=== PATIENT | female | born 1970 | race Caucasian/White ===

== ENCOUNTER → 2024-10-06 18:32 | Outpatient (REF) | payer OTHER, SELFPAY | LOC: PAVMRI 18:32 | PROVIDERS: ATTENDING PHYSICIAN Orthopaedic Surgery Hand Surgery; FAMILY PHYSICIAN Physician Assistant Medical | DX: M25.511 Pain in right shoulder (principal) | CPT/HCPCS: 73221 ==

== ENCOUNTER → 2024-10-17 14:48 | Outpatient (REF) | payer OTHER, SELFPAY | LOC: EMG 14:48 | PROVIDERS: ATTENDING PHYSICIAN Orthopaedic Surgery Hand Surgery; FAMILY PHYSICIAN Physician Assistant Medical | DX: R20.0 Anesthesia of skin (principal); M25.511 Pain in right shoulder | CPT/HCPCS: 95886; 95909 ==

== ENCOUNTER 2025-01-12 15:21 | Outpatient (RCR) | payer OTHER, SELFPAY | END 2025-01-12 23:59 | disposition home or self-care (01) | LOC: RPT 15:21 | PROVIDERS: ATTENDING PHYSICIAN Physician Assistant Surgical; FAMILY PHYSICIAN Physician Assistant Medical | DX: Z47.89 Encounter for other orthopedic aftercare (principal); M25.511 Pain in right shoulder; M62.81 Muscle weakness (generalized); M25.611 Stiffness of right shoulder, not elsewhere classified; Z73.6 Limitation of activities due to disability | CPT/HCPCS: 97010; 97110; 97140; 97162 ==

== ENCOUNTER 2025-02-11 15:47 | Outpatient (RCR) | payer OTHER, SELFPAY | END 2025-02-11 23:59 | disposition home or self-care (01) | LOC: RPT 15:47 | PROVIDERS: ATTENDING PHYSICIAN Physician Assistant Surgical; FAMILY PHYSICIAN Physician Assistant Medical | DX: Z47.89 Encounter for other orthopedic aftercare (principal); M25.511 Pain in right shoulder; M62.81 Muscle weakness (generalized); M25.611 Stiffness of right shoulder, not elsewhere classified; Z73.6 Limitation of activities due to disability | CPT/HCPCS: 97010; 97110; 97140 ==

== ENCOUNTER 2025-03-04 15:55 | Outpatient (RCR) | payer OTHER, SELFPAY | END 2025-03-04 23:59 | disposition home or self-care (01) | LOC: RPT 15:55 | PROVIDERS: ATTENDING PHYSICIAN Physician Assistant Surgical; FAMILY PHYSICIAN Physician Assistant Medical | DX: Z47.89 Encounter for other orthopedic aftercare (principal); M25.511 Pain in right shoulder; M62.81 Muscle weakness (generalized); M25.611 Stiffness of right shoulder, not elsewhere classified; Z73.6 Limitation of activities due to disability | CPT/HCPCS: 97110; 97140 ==

== ENCOUNTER → 2025-03-04 17:06 | Outpatient (REF) | payer OTHER, SELFPAY | LOC: RAD 17:06 | PROVIDERS: ATTENDING PHYSICIAN Physician Assistant Medical | DX: R05.9 Cough, unspecified (principal) | CPT/HCPCS: 71046 ==

== ENCOUNTER 2025-03-16 15:15 | Outpatient (RCR) | payer OTHER, SELFPAY | END 2025-03-16 23:59 | disposition home or self-care (01) | LOC: RPT 15:15 | PROVIDERS: ATTENDING PHYSICIAN Physician Assistant Surgical; FAMILY PHYSICIAN Physician Assistant Medical | DX: Z47.89 Encounter for other orthopedic aftercare (principal); M25.511 Pain in right shoulder; M62.81 Muscle weakness (generalized); M25.611 Stiffness of right shoulder, not elsewhere classified; Z73.6 Limitation of activities due to disability | CPT/HCPCS: 97110; 97140 ==

== ENCOUNTER → 2025-03-20 16:18 | Outpatient (REF) | payer OTHER, SELFPAY | LOC: RAD 16:18 | PROVIDERS: ATTENDING PHYSICIAN Physician Assistant Medical | DX: R05.9 Cough, unspecified (principal); R09.A2 Foreign body sensation, throat | CPT/HCPCS: 76536 ==